=== PATIENT | male | born 1960 | race Caucasian/White ===

== ENCOUNTER → 2021-09-22 | Outpatient (CLI) | payer BC ==
--- NOTE | 2021-09-28 10:24 | HM ---
HOLTER MONITOR REPORT Patient was monitored for 24 hours. The baseline rhythm is atrial fibrillation with normal conduction, the average rate 100 beats per minute, minimum 68, maximum 151 beats per minute. Ventricular ectopic activity was present in the form of rare single PVCs. No pauses were noted. No symptoms were reported. CONCLUSION: 1. Atrial fibrillation baseline rhythm. 2. Rare ventricular ectopic activity. 3. No symptoms were reported. MMODL / IJN: [id number] /
== END | disposition home or self-care (01) ==
LOC: RADECHMAIN 07:59
PROVIDERS: ATTEND Family Medicine
DX: I48.91 Unspecified atrial fibrillation (principal); I10 Essential (primary) hypertension; I49.3 Ventricular premature depolarization
CPT/HCPCS: 93225; 93226

== ENCOUNTER → 2021-10-04 | Outpatient (CLI) | payer BC ==
--- NOTE | 2021-10-04 11:44 | P.STRESS ---
- Stress Test Note Stress Test Results/Findings: Exam Performed: stress test Exam Date: 10/04/21 Reason for Exam: SOB Height: 5 ft 10.5 in Weight: 215 kg Protocol: FAITH Stage: 1 Duration of Exercise: 3 MIN Resting Heart Rate: 91 Resting Blood Pressure: 92/49 Maximum Achieved Heart Rate: 142 Maximum Achieved Blood Pressure: 119/92 85% PMHR: 135 100% PMHR: 159 METS: 1 Technologist Comment: Stress Test Results/Findings: This is a 61-year-old gentleman being evaluated for symptoms of shortness of breath. Patient also has hypercholesterolemia and history of smoking. Stress data: Baseline EKG showed irregular heart rhythm, probably atrial fibrillation with moderately rapid ventricle response.. Heart rate is about 91 with a blood pressure 92/49. Patient walked on the Faith protocol for about 3 minutes reaching a maximum heart rate of 142, blood pressure 116/66. The test was stopped because of shortness of breath. Patient had occasional PVCs. EKGs taken during and after the exercise did not reveal any change of ischemia. Patient continued to be in atrial fibrillation throughout the testing. Final impression: #1. Limited excess capacity #2. It appears that patient baseline rhythm is atrial fibrillation with mild rapid ventricular response. #3. Test is negative for ischemia at the level of exercise that patient has achieved #3. Occasional PVCs were noted. #4. The test was stopped because of shortness of breath.
== END | disposition home or self-care (01) ==
LOC: RADNMMAIN 10:24
PROVIDERS: ATTEND Family Medicine
DX: I10 Essential (primary) hypertension (principal); I48.91 Unspecified atrial fibrillation; I49.3 Ventricular premature depolarization
CPT/HCPCS: 93017

== ENCOUNTER → 2022-08-05 | Outpatient (CLI) | payer BC ==
--- NOTE | 2022-08-05 12:59 | CT ---
Exam: CT Angiography of the Chest. Date: 08/05/2022. Comparison: None History: Aneurysm Technique: CT examination of the chest was performed following the intravenous administration of mill iliters of Isovue-370. CT dose lowering techniques were used, to include: automated exposure control, adjustment for patient size, and/or use of iterative reconstruction. FINDINGS: Mediastinum and Mary Ann: There is no axillary, mediastinal or hilar lymphadenopathy. Pleural and Pericardial spaces: There are no pleural or pericardial effusions. Upper Abdomen: Area of enhancement within the right lobe of the liver measuring 2.9 cm in diameter wh ich is likely a hemangioma. A cyst which is partially visualized within the upper pole the right kidn ey measuring up to 4.1 cm in diameter. Cardiovascular: Mild vascular calcification and plaque seen throughout the thoracic aorta with mild d ilation of the ascending thoracic aorta measuring up to 4 cm in diameter. There is no evidence of aor tic dissection. Pulmonary Artery: There are no filling defects in the pulmonary arteries. Lung Parenchyma and Airways: The lungs are clear. Bones: No fracture or aggressive osseous lesion. IMPRESSION: 1. No evidence of pulmonary embolism. 2. Mild dilation of the ascending thoracic aorta up to 4 cm in diameter. 3. No evidence of aortic dissection. 4. No evidence of pneumonia, pleural or pericardial effusions.
== END | disposition home or self-care (01) ==
LOC: RADCTMAIN 09:45
PROVIDERS: ATTEND Internal Medicine Interventional Cardiology
DX: I71.21 Aneurysm of the ascending aorta, without rupture (principal)
CPT/HCPCS: 71275

== ENCOUNTER → 2023-12-16 | Outpatient (CLI) | payer BC ==
[2023-12-16 13:11] LABS: HCT 46.2 % (39.6-50.0); MCHC 32.5 g/dL (32.0-37.0); MCV 89.2 FL (80.0-97.0); Mean Platelet Volume 10.6 FL (9.5-12.2); NRBC Per 100 WBC 0 X 10*3/uL (0.00-0.01); Platelet Count 204 X 10*3/uL (140-440); RBC 5.18 X 10*6/uL (4.40-5.60); RDW 13.8 % (11.5-14.5); WBC 8.33 X 10*3/uL (4.50-10.00)
[2023-12-16 13:28] LABS: Blood Urea Nitrogen 22.8 mg/dL (9.0-27.0); Carbon Dioxide 26.2 mmol/L (21.6-31.8); Chloride 106 mmol/L (96-109); Potassium 5.2 mmol/L (3.5-5.5); Sodium 141 mmol/L (135-145)
== END | disposition home or self-care (01) ==
LOC: LABPAT 08:14
PROVIDERS: ATTEND Internal Medicine Clinical Cardiac Electrophysiology
DX: Z01.812 Encounter for preprocedural laboratory examination (principal); I48.19 Other persistent atrial fibrillation
CPT/HCPCS: 36415; 80051; 82565; 84520; 85027

== ENCOUNTER 2024-01-04 10:33 | Day surgery (SDC) | payer BC ==
[2024-01-02 16:35] VITALS: BMI 32.1
[2024-01-04] MEDS: SODIUM CHLORIDE 0.9% 1,000 ML IV ONE (11:05)
[2024-01-04] MEDS ORDERED: MIDAZOLAM 2 MG/2 ML VIAL ONE (11:20)
[2024-01-04] MEDS ORDERED: LIDOCAINE 1% INJ 10MG/ML (20 ML MDV) ONE (11:20)
[2024-01-04] MEDS ORDERED: PHENYLEPHRINE-0.9% NACL SYG 1,000 MCG/10 ML SYRINGE ONE (11:20)
[2024-01-04] MEDS ORDERED: HEPARIN SODIUM,PORCINE 5,000 UNIT/ML 1 ML VIAL ONE (11:20)
[2024-01-04] MEDS ORDERED: PROPOFOL 10 MG/ML 20 ML VIAL IV ONE (11:20)
[2024-01-04] MEDS ORDERED: fentaNYL (PF) 50 MCG/ML 2 ML AMP ONE (11:20)
[2024-01-04] MEDS ORDERED: HYDROmorphone (PF) 1 MG/ML ONE (11:20)
[2024-01-04] MEDS ORDERED: ePHEDrine 50 MG/ML 1 ML VIAL ONE (11:20)
[2024-01-04] MEDS ORDERED: HEPARIN SODIUM,PORCINE 10,000 UNIT/ML 1 ML VIAL ONE (11:20)
[2024-01-04] MEDS ORDERED: SUCCINYLCHOLINE CHLORIDE 200 MG/10 ML VIAL IV ONE (11:20)
[2024-01-04 11:27] VITALS: RESP 16
[2024-01-04] MEDS: LIDOCAINE 1% INJ 10MG/ML (20 ML MDV) SQ ONE (12:18)
[2024-01-04] MEDS: IOPAMIDOL-370 100ML BTL INJ ONE (13:53)
[2024-01-04] MEDS ORDERED: ACETAMINOPHEN TAB 325 MG TAB PO PRN (14:36)
--- NOTE | 2024-01-04 15:00 | P.HPCAR ---
History of Present Illness This is Dr. Loja dictating an H/P on this patient The patient was interviewed and examined IMPRESSION / ASSESSMENT: Persistent atrial fibrillation, symptomatic with dizziness and shortness of breath Cardiomyopathy Bicuspid aortic valve with moderate to severe aortic regurgitation Failed treatment with antiarrhythmic drug therapy and cardioversion with recurrence of atrial fibrillation PLAN: A-fib ablation with PVI and linear ablation of the left atrial roof Continue Eliquis HPI Patient continues to complain of shortness of breath with exertion He has persistent atrial fibrillation that is recurred following electrical cardioversion He also has a mild cardiomyopathy with a bicuspid aortic valve with moderate to severe aortic regurgitation Denies any fever chills cough expectoration ROS: No fever chills or rigors, no cough, phlegm or expectoration, no nausea, vomiting or diarrhea, no hematuria, dysuria, no musculoskeletal complaints, no strokes or seizures, no skin lesions. EXAMINATION: Heart rates are controlled Breath sounds are clear no rhonchi no crackles Soft diastolic murmur Abdomen soft Extremities warm No JVD REVIEW OF LABS, ECG & MEDICAL DATA Patient on Eliquis atorvastatin and metoprolol TSH normal Physical Exam Vitals: Vital Signs Temp Pulse Resp BP Pulse Ox 01/04/24 11:06 98.4 F 79 16 152/88 96 Intake and Output 01/03/24 01/04/24 01/04/24 22:59 06:59 14:59 Intake Total 50 Balance 50 Intake: IV 50 Other: Weight 94.9 kg Past Medical History Past Medical History: Atrial Fibrillation, Hyperlipidemia, Hypertension, Pneumonia Additional Past Medical History / Comment(s): Hx Viral Pneumonia yrs ago. Hx Bronchitis. Insomnia and excessive snoring. History of Any Multi-Drug Resistant Organisms: None Reported Additional Past Surgical History / Comment(s): Nasal surgery. Colonoscopy. CARDIOVERSION Past Anesthesia/Blood Transfusion Reactions: No Reported Reaction Smoking Status: Former smoker - Past Family History Mother Family Medical History: Cancer Brother(s) Family Medical History: Cancer Physical Examination Vital Signs Temp Pulse Resp BP Pulse Ox 01/04/24 11:06 98.4 F 79 16 152/88 96 Intake and Output 01/03/24 01/04/24 01/04/24 22:59 06:59 14:59 Intake Total 50 Balance 50 Intake: IV 50 Other: Weight 94.9 kg Results Current Medications Generic Name Dose Route Start Last Admin Trade Name Freq PRN Reason Stop Dose Admin Acetaminophen 650 mg 01/04/24 14:36 Acetaminophen Tab 325 Mg Tab PO Q6HR PRN Mild Pain (Scale 1 to 3) Apixaban 5 mg 01/04/24 21:00 Apixaban 5 Mg Tab PO BID [facility] Protocol Atorvastatin Calcium 40 mg 01/05/24 09:00 Atorvastatin 40 Mg Tab PO DAILY [facility] Sodium Chloride 1,000 mls @ 20 mls/hr 01/04/24 06:06 Saline 0.9% IV 02/03/24 06:07 .Q24H [facility] Metoprolol Succinate 25 mg 01/05/24 09:00 Metoprolol Succinate (Er) 25 Mg Tab.Er.24h PO DAILY [facility] Sodium Chloride 12 ml 01/04/24 14:36 Sodium Chloride 0.9% Flush 10 Ml Syringe IV Q12HR PRN Line Flush Intake and Output 01/03/24 01/04/24 01/04/24 22:59 06:59 14:59 Intake Total 50 Balance 50 Intake: IV 50 Other: Weight 94.9 kg Patient Weight 01/05/24 06:59 Weight 94.9 kg
[2024-01-04] MEDS: SODIUM CHLORIDE 0.9% 1,000 ML IV SCH (15:23)
[2024-01-04] MEDS: APIXABAN 5 MG TAB PO SCH (19:29)
[2024-01-04] MEDS: ACETAMINOPHEN IV (For NPO) 1,000 MG in EMPTY BAG 1 BAG IVPB ONE (19:31)
[2024-01-05 07:59] VITALS: BP 130/73; PULSE 73; TEMP 98.1
[2024-01-05] MEDS: METOPROLOL SUCCINATE (ER) 25 MG TAB.ER.24H PO SCH (08:23)
[2024-01-05] MEDS: ATORVASTATIN 40 MG TAB PO SCH (08:24)
--- NOTE | 2024-01-05 09:36 | P.DS ---
Providers Date of admission: 01/04/24 Attending physician: Donis Loja Primary care physician: Theodore Casanovahven [facility] Hospital Course: The patient is a 63-year-old male who follows in the office with Dr. Norris. He underwent pulmonary vein isolation and linear ablation of the left atrial roof yesterday with Dr. Loja. Overall the patient tolerated the procedure well. He has been up ambulating around his room and reports no significant discomfort in his groins. GENERAL: Well-appearing, well-nourished and in no acute distress. NECK: Supple without JVD or thyromegaly. LUNGS: Breath sounds clear to auscultation bilaterally. Respiration equal and unlabored. No wheezes, rales or rhonchi. HEART: Regular rate and rhythm. Systolic murmur. No rubs or gallops. S1 and S2 heard. EXTREMITIES: Normal range of motion, no edema. No clubbing or cyanosis. Peripheral pulses intact and strong. Bruising noted in left groin. No hematoma. No oozing or drainage from procedure sites. TELEMETRY: Sinus rhythm overnight IMPRESSION: Persistent atrial fibrillation, failed antiarrhythmic therapy Status post pulmonary vein isolation Cardiomyopathy Bicuspid aortic valve, with moderate to severe AI PLAN: Metoprolol to be reduced to 25 mg daily Continue anticoagulation Patient may be discharged Follow-up in 1 week with primary die storage clerk Dr. Norris I am dictating on behalf of Dr Donis Loja's history/physical and assessment/plan. Plan - Discharge Summary Discharge Rx Participant: No New Discharge Prescriptions: No Action Metoprolol Succinate [Toprol XL] 25 mg PO DAILY Ergocalciferol [Vitamin D2 (1250 Mcg = 92198 Iu)] 1,250 mcg PO SA Apixaban [Eliquis] 5 mg PO BID Atorvastatin Calcium [Lipitor] 40 mg PO DAILY Discharge Medication List Apixaban [Eliquis] 5 mg PO BID 10/25/21 [History] Atorvastatin Calcium [Lipitor] 40 mg PO DAILY 10/25/21 [History] Ergocalciferol [Vitamin D2 (1250 Mcg = 09485 Iu)] 1,250 mcg PO SA 10/25/21 [History] Metoprolol Succinate [Toprol XL] 25 mg PO DAILY 10/25/21 [History]
--- NOTE | 2024-01-08 07:36 | P.EPPROC ---
- EP Procedure Note Electrophysiology Procedure Note: PROCEDURE A. fib ablation DIAGNOSIS Atrial fibrillation, symptomatic, refractory to therapy RESULT No left atrial appendage mass seen on intracardiac echo Successful A. fib ablation/pulmonary vein isolation of all veins using cryo- ablation Complete entrance block in all 4 veins confirmed No evidence for phrenic nerve injury Ablation of the left atrial septum Ablation of the left atrial roof Esophageal deflection YES Electrical cardioversion with a synchronized shock across the chest YES / NO PROCEDURE DETAILS Written informed consent prior to procedure. Patient brought to the EP lab. General anesthesia given. Heparin administered. A city maintained above 300 seconds Both groins prepped and draped per protocol and venous sheaths placed. Esophagus intubated, circa catheter for temperature monitoring an endoscope for possible esophageal deflection. Phrenic nerve monitoring performed. Esophageal temperature monitoring performed. Esophageal deflection performed if circa catheter overlapping with the balloon or circa temperature less than 27.5C Intracardiac echocardiography performed. Pericardium evaluated. Left atrial appendage evaluated. Left atrium evaluated along with pulmonary veins Transseptal catheterization performed [facility] guidance [facility] Cryoablation sheath exchanged, balloon catheter along with achieve catheter placed in the left atrium. Pulmonary veins isolated in the following sequence: Left superior pulmonary vein followed by left inferior pulmonary vein, followed by right inferior pulmonary vein and lastly right superior pulmonary vein. Phrenic nerve stimulation along with capture thresholds within the SVC and right superior pulmonary vein to identify the phrenic nerve proximity to the cryo- balloon. Pulmonary veins isolated and confirmed with entrance and exit block. Phrenic nerve integrity confirmed at the end of the procedure Ablation of the left atrial roof performed with sequential lesions from the left superior to the right superior pulmonary veins. Ablation of the electrograms confirmed Ablation of the left atrial septum performed with cannulation of the inferior branch of the right superior vein to achieve ablation of the posterior septum of the left atrium. Ablation of electrograms confirmed Electrical cardioversion performed for persistence of atrial fibrillation despite successful ablation. Diagnostic catheters for the high right atrium, His bundle, coronary sinus pl aced. LA and RA pressures recorded RA pressure: 72/5 LA pressure: 112/6 Diagnostic EP study with coronary sinus pacing and recording Baseline measurements: HV interval = 34 Venous sheaths were removed and hemostasis assured with a closure device. Patient extubated and transferred to recovery Increase procedural time During ablation multiple attempts had to be made to move the esophagus a safe distance of the from the pulmonary vein draining cryoablation, to avoid excessive thermal cooling of the esophagus This took extra time and effort to keep the esophagus a safe distance away from the cryoablation balloon. During ablation of the right-sided veins, phrenic nerve stimulation was noted within the right-sided veins. The cryo balloon in close proximity to this location, during standard technique for occlusion of the vein, posing a risk to the phrenic nerve. Therefore the balloon was repositioned around the antrum in a roving fashion to isolate the vein at an extra ostial level to minimize the risk of phrenic nerve injury. The right-sided veins were completely and successfully isolated with this extra effort Multiple attempts needed for successful cryoablation isolation of the pulmonary vein PROCEDURES PERFORMED Diagnostic EP study CS pacing and recording Left and right transseptal catheterization Catheter the mapping of the tachycardia Intracardiac echocardiography Pulmonary vein isolation with transseptal and comprehensive EPS, [id number] Left atrial roof line, +[id number] Linear ablation, left atrium, +[id number] Electrical cardioversion with a synchronized shock across the chest [id number]
== END 2024-01-05 10:39 | disposition home or self-care (01) ==
LOC: CATHEP 10:33 → 6NMEDSUR 14:12 → CATHEP 01-05 10:39
PROVIDERS: ATTEND Internal Medicine Clinical Cardiac Electrophysiology
DX: I48.19 Other persistent atrial fibrillation (principal); I42.9 Cardiomyopathy, unspecified; I35.1 Nonrheumatic aortic (valve) insufficiency; I10 Essential (primary) hypertension; E78.5 Hyperlipidemia, unspecified; Z79.01 Long term (current) use of anticoagulants; Z79.899 Other long term (current) drug therapy; Z87.891 Personal history of nicotine dependence; Z87.01 Personal history of pneumonia (recurrent)
CPT/HCPCS: 92960; 93656; 93657; 86900; 86901; 84443; 86850; C1894 ×2; C1769 ×3; C1760; C1730 ×2; C1759; C1893; C1733; C1766; J2001; Q9967

== ENCOUNTER → 2024-02-05 | Day surgery (SDC) | payer BC ==
[~2024-02-05] MED LIST: LACTATED RINGERS 1,000 ML IV SCH; SODIUM CHLORIDE 0.9% 500 ML 500 ML IV SCH
[2024-02-05 06:31] VITALS: BP 139/76; PULSE 58; RESP 18; TEMP 97.4
--- NOTE | 2024-02-05 07:11 | P.PN ---
Subjective Progress Note Date: 02/05/24 The patient presented today for GAYLE guided cardioversion. He is back in sinus mechanism with the adjustment of his medication. He is feeling better. He will be discharged home today on his present medical regimen and follow-up in 1 week. Objective - Vital Signs Vital signs: Vital Signs Temp 97.4 F L 02/05/24 06:24 Pulse 58 L 02/05/24 06:24 Resp 18 02/05/24 06:24 BP 139/76 02/05/24 06:24 Pulse Ox 98 02/05/24 06:24 FiO2 Intake & Output 02/04/24 02/05/24 02/05/24 18:59 06:59 18:59 Weight 96.5 kg
== END | disposition home or self-care (01) ==
LOC: OR 05:50
PROVIDERS: ATTEND Internal Medicine Interventional Cardiology
DX: I48.11 Longstanding persistent atrial fibrillation (principal); E78.5 Hyperlipidemia, unspecified; Z82.49 Family history of ischemic heart disease and other diseases of the circulatory system; Z53.8 Procedure and treatment not carried out for other reasons